=== PATIENT | male | born 1985 | race African-American/Black ===

== ENCOUNTER 2017-03-21 02:46 | Emergency (ER) | payer OTHER, MEDICAID ==
[~2017-03-21] VITALS: Ht 172.7 cm; Wt 86.2 kg
[2017-03-21 03:40] VITALS: BP_SYST 120
--- NOTE | 2017-03-21 03:40 | NUR ---
PT AMBULATORY TO BED 6 FOR EVAL
--- NOTE | 2017-03-21 03:50 | NUR ---
PT AAOX4 AND AMBULATORY. PT STATES THAT HE IS ONLY HERE TO GET A PRESCRIPTION FOR [place]. WHEN ASKED ABOUT PAIN, PT C/O RT HAND PAIN THAT STARTED WHEN HE WOKE UP THIS MORNING. PT DENIES ANY OTHER PAIN. VSS, NO SIGNS OF DISTRESS NOTED. WILL CONTINUE TO MONITOR.
--- NOTE | 2017-03-21 04:05 | NUR ---
CHERELLE Dos Santos at bedside examining patient.
[2017-03-21] MEDS ORDERED: KETOROLAC TROMETHAMINE 30 MG VIAL IM ONE (04:15)
[2017-03-21 04:34] VITALS: BP_SYST 119
--- NOTE | 2017-03-21 04:34 | NUR ---
Patient given written and verbal discharge instructions and verbalizes understanding. ER MD discussed with patient the results and treatment provided. Patient in stable condition. ID arm band removed. Rx of NAPROXEN given. Patient educated on pain management and to follow up with PMD. Pain Scale 0/10. Opportunity for questions provided and answered.
== END 2017-03-21 04:34 | disposition home or self-care (01) ==
LOC: SED 02:46
DX: M79.641 Pain in right hand (principal); Z76.5 Malingerer [conscious simulation]; Z91.041 Radiographic dye allergy status
CPT/HCPCS: 96372; 99283; J1885